=== PATIENT | female | born 1980 | race Caucasian/White ===

== ENCOUNTER → 2020-03-21 | Outpatient (CLI) | payer BC ==
[~2020-03-21] MED LIST: CEPHALEXIN500 M1 PO; NORCO 325 MG-51 TAB PO; SYNTHROID0.05 MG/TA PO
== END ==
LOC: MC.RAD 13:15
DX: N63.20 Unspecified lump in the left breast, unspecified quadrant (principal)
CPT/HCPCS: G0279